=== PATIENT | male | born 1960 | race Two or more races ===

== ENCOUNTER 2018-03-11 11:06 | Inpatient (IN) | payer OTHER ==
[~2018-03-11] VITALS: Ht 170.2 cm; Wt 74.0 kg
--- NOTE | 2018-03-11 11:24 | NUR ---
PT BROUGHT TO ER FOR RECTAL BLEEDING, PER MEDIC PT WAS AT HOME WITH FAMILY AND REPORTS BRIGHT RED RECTAL BLOOD FOR 3 DAYS, PT DENIES PAIN, PT HAS WOUND VAC TO RIGHT AMPUTATED FOOT X2 MONTHS, PER PT HE IS SUPPOSED TO HAVE THE VAC CHANGED OUT TODAY. PT IS ALERT AND ORIENTED. PT REPORTS TAKING ADVIL TODAY AND HAS MILD SOB WHEN TALKING AT THIS TIME. DR PANDEY AT BEDSIDE FOR MSE.
--- NOTE | 2018-03-11 11:28 | NUR ---
DAUGHTER AT BEDSIDE SPEAKING WITH MD. DAUGHTER REPORTS HE HAS HAD 2 EPISODES OF BRIGHT RED BLOOD DRIPPING DOWN HIS LEGS. SHE ALSO STATES VOMITED THIS AM AND HIS EJECTION FRACTION IS 20%. LAB AT BEDSIDE AND DAUGHTER REPORTS HE IS TAKING PRADAXA.
--- NOTE | 2018-03-11 11:48 | NUR ---
PT IN POC, ALERT AND ORIENTED, ABLE TO GIVE SOCIAL NUMBER TO ADMITTING
--- NOTE | 2018-03-11 11:49 | NUR ---
PT DAUGHTER REPORTING HE IS A [employer] AND HAS NEVER BEEN TO [facility] BEFORE.
--- NOTE | 2018-03-11 11:55 | NUR ---
OK TO HOLD LEVOPHED AT THIS TIME UNTIL SYSTOLIC B/P IS LOWER THAN [address] PANDEY.
--- NOTE | 2018-03-11 11:56 | NUR ---
PORTABEL XRAY COMPLETED AT THIS TIME. PT ON FULL CM, SIDE RAILS UP FOR SAFETY, CALL LIGHT IN REACH AND I WILL CONTINUE TO MONITOR PT.
[2018-03-11 12:09] LABS: BILIRUBIN TOTAL 3.9 mg/dL (0.20-1.00); CALCIUM 7.5 mg/dL (8.5-10.1); CARBON DIOXIDE 20.4 mmol/L (21-32); PLATELET COUNT 121 x10^3mcL (130-400); POTASSIUM SERUM 3.1 mmol/L (3.5-5.1); RED CELL DISTRIBUTION WIDTH 18.1 % (11.5-14.5)
[2018-03-11 12:10] LABS: ALBUMIN 1.6 g/dL (3.4-5.0); TOTAL PROTEIN, SERUM 5.3 g/dL (6.4-8.2)
--- NOTE | 2018-03-11 12:14 | NUR ---
PT RESTING IN LOW FOWLERS, POC, SIDE RAILS UP, CALL LIGHT IN REACH AND PT ANSWERING QUESTIONS IN COMPLETE SENTENCES. PT HOLDING RIGHT FOREARM OVER FOREHEAD, REPORTS "IM JUST TIRED" PT AROUSBALE TO VERBAL STIMULI AND I WILL CONTINUE TO MONITOR PT.
--- NOTE | 2018-03-11 12:35 | NUR ---
PER AT BEDSIDE, PT TAKING PLAVIX DAILY FOR A LONG TIME AND WAS TOLD PRIOR TO FOOT SX TO START PRADAXA, THEN STOP 5 DAYS BEFORE SX. THE SURGERY WAS Feb AND PER PT THE DR CALLED AND TOLD HIM TO CONTINUE TAKING THE PRADAXA DAILY. PT REPORT HE DID NOT TAKE IT THIS AM.
[2018-03-11 12:48] LABS: BAND NEUTROPHIL 28 % (0-10); BASOPHIL 0 % (0-2); MONOCYTE 7 % (0-7); SEGMENTED NEUTROPHILS 62 % (37-75)
[2018-03-11 12:49] LABS: PLATELET MORPHOLOGY PLATELETS DECREASED; acanthocyte (spur cell) 3+; rbc morphology (normal/abnorm) ABNORMAL (NORMAL)
--- NOTE | 2018-03-11 12:59 | NUR ---
PT AT BEDSIDE PT LYING LEFT LATERAL AND ROLLING TO BACK WITHOUT ASSISTANCE FOR COMFORT. PT IS ALERT AND AROUSBALE TO VERBAL STIMULI. PT ON FULL CM, SIDE RAILS UP FOR SAFETY AND PRAXBIND INFUSING AND I WILL CONTINUE TO MONITOR PT.
--- NOTE | 2018-03-11 14:18 | NUR ---
PT LYING LEFT LATERAL; POC, AT BEDSIDE AND PT ON MONITOR. PT C/O OF PAIN TO RIGHT FOOT 10/22 AND NOW REQUESTING "PAIN PILLS" I ASKED PT WHAT HIS PRESCRIPITON FOR HIS FOOT PAIN IS AND HE RESPONDED "NORCO BUT I DONT TAKE IT, I ONLY TAKE TYLENOL" MD AWARE. STUDENT RESIDENT AT BEDSIDE.
[2018-03-11 14:51] LABS: MAGNESIUM 1.9 mg/dL (1.8-2.4); PHOSPHOROUS 2.9 mg/dL (2.5-4.9)
--- NOTE | 2018-03-11 14:55 | NUR ---
RECEIVED REPORT FROM SUSY FROM ED. PT ARRIVED ALERT & ORIENTED W/ SPEECH APPROPRIATE. EENT FREE OF DISCHARGE. PT BREATH E/U ON 2L NC. NSR W/ S1S2 TO DISTANT HEART SOUNDS. PT DENIES CHEST PAIN. PULSES MODERATE X4 BUE/BLE. CAP REFILL < 3 SEC. NO EDEMA. SKIN IS COOL. TEMP 95.9 WARMING MEASURES IMPLEMENTED. PERIPHERAL IV TO LEFT & RIGHT WRIST. PT NPO. ABD SOFT & FLAT. ACTIVE BS X4Q. PT SEMI-FORMED BROWN STOOL. NOTED DARK RED BLOOD SPOTTING ON DIAPER. NO ABD PAIN ON PALPATION. URINE INCONTINENT. PT HAS RIGHT FOOT SURGICAL WOUND W/ DRESSING TO WOUNDVAC, SECURE & INTACT. RIGHT BUTT CHEEK ABRASION W/ ZGUARD & OPTIFOAM PLACED. SKIN PINK. @ BEDSIDE. BED IN LOWEST POSITION CALL LIGHT IN REACH, ORIENTED TO ICU BED 1.
[2018-03-11 14:59] LABS: FREE T4 1.07 ng/dL (0.76-1.46); FREE THYROXINE INDEX 1.8 ug/dL (1.4-4.5); T4(THYROXINE) 4.8 ug/dL (4.7-13.3)
[2018-03-11 15:17] LABS: T3 TOTAL 0.22 ng/mL
[2018-03-11 15:38] VITALS: BP 92/67
--- NOTE | 2018-03-11 16:16 | NUR ---
COLLEGE TEACHER @ BEDSIDE. DR MINAYA VIEWED RESULTS W/ COLLEGE TEACHER.
--- NOTE | 2018-03-11 19:00 | NUR ---
DR. SALCEDO AT BEDSIDE FOR UPDATES. ALL QUESTIONS AND CONCERNS ANSWERED. ORDERED VIT K INJ WELL STATING THAT THE EGD AND COLONOSCOPY IS PLANNED FOR 0900 03/12/18.
[2018-03-11 19:30] VITALS: BP 100/69
--- NOTE | 2018-03-11 19:30 | NUR ---
GAVE REPORT TO MARIA ALEJANDRA KIMBALL. ALL QUESTIONS AND CONCERNS ANSWERED.
--- NOTE | 2018-03-11 19:30 | NUR ---
REC'D REPORT FROM GERI BESS FOR CONTINUITY OF CARE. PT SEEN LYING IN BED WITH EYES CLOSED, VERBALLY RESPONSIVE. PT IS A/O X4, SPEECH CLEAR AND APPROPRIATE. PT WITH C/O 8/[address] MCRAE MADE AWARE STATES WILL ORDER TORADOL. NO SOB NOTED, RESPS E/U ON O2 2LPM VIA NC O2 SAT 95%. ABD DISTENDED AND SOFT. BOWEL SOUNDS HYPOACTIVE. PT CONTINUED ON BOWEL PREP FOR PROCEDURE IN AM WITH DR SALCEDO. PT INCONTINENT X2. GAIL BUTTOCK AREA NOTED WITH OPEN WOUNDS. Z GUARD APPLIED. RIGHT FOOT AMPUTATION WITH DSG CDI, WOUND VAC IN PLACE DRAINING VIA GRAVITY. SCDS IN PLACE. PT TEACHING PROVIDED REGARDING PLAN OF CARE REGARDING BOWEL PREP AND WILL BE NPO AFTER [address] PHILLIPS, VERBALIZED UNDERSTANDING. INSTRUCED TO CALL FOR ANY ASSISTANCE WITH CALL LIGHT. CALL LIGHT WITHIN REACH. WILL CONTINUE WITH PLAN OF CARE.
--- NOTE | 2018-03-11 19:40 | NUR ---
PT HAD LARGE SOFT BM, CLEANED, GOOD RAMAN CARE PROVIDED. Z-GUARD APPLIED TO GAIL BUTTOCK OPEN WOUNDS.
--- NOTE | 2018-03-11 19:45 | NUR ---
INFORMED CONSENT FOR EGD AND COLONOSCOPY SIGNED BY PT WITH AT BEDSIDE. PT VERBALIZES UNDERSTANDING ALL RISKS/BENEFITS AND WAS DISCUSSED WITH DR SALCEDO REGARDING EGD AND COLONOSCOPY PROCEDURES IN AM.
--- NOTE | 2018-03-11 20:00 | NUR ---
DR MCRAE PAGED REGARDING PAIN MEDICATION, AWAITING CALL BACK.
--- NOTE | 2018-03-11 20:10 | NUR ---
JAZMIN RT AT BEDSIDE, PT REFUSED BREATHING TX AT THIS TIME. PT STATES I DON'T FEEL SOB.
--- NOTE | 2018-03-11 20:25 | NUR ---
DR MCRAE CALLED, REMINDED REGARDING PTS PAIN LEVEL 8/10 NEEDING PAIN MEDICATION. STATES WILL ORDER.
--- NOTE | 2018-03-11 20:38 | NUR ---
PT HAD LARGE SOFT BM, CLEANED, GOOD RAMAN CARE PROVIDED. Z-GUARD APPLIED TO GAIL BUTTOCK OPEN WOUNDS.
--- NOTE | 2018-03-11 20:40 | NUR ---
PTS BLADDER SCAN DONE, 578ML RESIDUAL NOTED. EXPLAINED TO PT RISKS/BENEFITS OF F/C. PT STATES WANTING PAIN MEDICATION PRIOR TO CATHETER INSERTION. DR MCRAE MADE AWARE.
--- NOTE | 2018-03-11 21:15 | NUR ---
PT REPOSITIONED TO RIGHT SIDE, PT BECAME SOB STATING I CAN'T BREATH. O2 SAT 89%. PT PLACED IN HIGH FOWLERS POSITION, O2 TITRATED TO 4LPM. RT JAZMIN CALLED AT THIS TIME.
--- NOTE | 2018-03-11 21:27 | NUR ---
RT JAZMIN AT BEDSIDE GIVING BREATHING TX. RT JAZMIN SUGGESTING FLUID IN LUNGS MIGHT HAVE SHIFTED WHEN REPOSITIONED AND PT BECAME SOB. PTS STATES PT USUALLY TAKES LASIX AT HOME. DR MCRAE CALLED AGAIN MADE AWARE REGARDING PTS C/O SEVERE PAIN, BLADDER SCAN RESULT OF 578, AND EPISODE OF SOB WITH SUGGESTION TO ADD LASIX MEDICATION. DR MCRAE STATES TO INSERT F/C AND WILL ORDER MEDICATIONS.
--- NOTE | 2018-03-11 22:06 | NUR ---
F/C 16FR INSERTED AT EASE. PT TOLERATED WELL. 400ML DARK FRANCI COLORED URINE NOTED.
[2018-03-11 23:02] LABS: microscopic required? YES; urine erythrocyte TRACE (NEGATIVE)
[2018-03-11 23:11] LABS: AMPHETAMINE QUAL UR NONE DETECTED (See below)
[2018-03-12] VITALS (7 sets, daily range): BP systolic 90–122; BP diastolic 36–76; Ht 170.2 cm; Wt 74.0 kg
--- NOTE | 2018-03-12 00:19 | NUR ---
PT HAD LARGE PASTEY BM. CLEANED AND GOOD RAMAN CARE PROVIDED. Z-GUARD APPLIED. SMALL AMT OF BLOOD NOTED TO OPEN AREA ON BUTTOCK.
--- NOTE | 2018-03-12 04:15 | NUR ---
PT HAD LARGE AMT OF LOOSE WATERY BM. CLEANED AND ALL LINENS CHANGED. Z-GUARD APPLIED. NO BLOOD NOTED IN STOOL.
[2018-03-12 05:17] LABS: PLATELET COUNT 123 x10^3mcL (130-400); RED CELL DISTRIBUTION WIDTH 17.5 % (11.5-14.5)
[2018-03-12 05:23] LABS: CALCIUM 7.7 mg/dL (8.5-10.1); CARBON DIOXIDE 20.6 mmol/L (21-32); CREATININE SERUM 2.2 mg/dL (0.7-1.3)
[2018-03-12 05:38] LABS: BAND NEUTROPHIL 4 % (0-10); METAMYELOCTE 5 % (0-2); MONOCYTE 5 % (0-7); SEGMENTED NEUTROPHILS 84 % (37-75)
--- NOTE | 2018-03-12 05:45 | NUR ---
PT HAD LARGE, WATERY CLEAR BM. PT CLEANED, ALL LINENS CHANGED. Z-GUARD APPLIED.
[2018-03-12 05:46] LABS: burr cell (echinocyte) 1+; rbc morphology (normal/abnorm) ABNORMAL (NORMAL)
[2018-03-12 05:47] LABS: acanthocyte (spur cell) 1+
--- NOTE | 2018-03-12 06:22 | NUR ---
PT HAD LARGE, WATERY CLEAR BM. PT CLEANED, ALL LINENS CHANGED. Z-GUARD APPLIED.
--- NOTE | 2018-03-12 08:55 | NUR ---
GI TEAM AT BEDSIDE SETTING UP FOR COLONOSCOPY AND EGD.
--- NOTE | 2018-03-12 09:58 | NUR ---
EGD AND COLONOSCOPY COMPLETED BY DR CARRILLO. NO ACTIVE BLEEDING FOUND. OK TO TRANSFER TO [facility] PER DR CARRILLO.
--- NOTE | 2018-03-12 10:35 | NUR ---
DR. CARSON, RESIDENTS, GROUP SOCIAL WORKER AND PRIMARY RN AT BEDSIDE FOR MORNING ROUNDS. PLAN OF CARE DISCUSSED. PT REMAINS STABLE. WILL CONT TO MONITOR.
--- NOTE | 2018-03-12 13:31 | NUR ---
R FOOT DRESSING CHANGED. WET TO DRY.
--- NOTE | 2018-03-12 14:17 | NUR ---
GAVE REPORT TO LEONIN FOR PT TO ROOM 240A. ALL CARE ENDORSED.
--- NOTE | 2018-03-12 15:40 | NUR ---
RECEIVED FROM ICU VIA BED ASLEEP, AROUSABLE, APPEARS VERY SLEEPY AND WENT BACK TO SLEEP RIGHT AWAY. S/P EGD AND COLONOSCOPE THIS MORNING PER ICU REPORT. BREATHING E/U ON O2 2LPM N/C. AFEBRILE, V/S STABLE. IVF NS INFUSING AT 100ML/HR IV SITE INTACT AND PATENT. TELE# NSR WITH PAC'S AND PVC, HR=66. NO FRACE GRIMACING OR SIGNS OF PAIN. ON FULL LIQUID DIET, PER SPOUSE STATED PATIENT HAD A LITTLE BIT OF SOUP, DENIES NAUSEA. LOMBARDO CATHETER DRAINING TO GRAVITY DARK FRANCI URINE COLORED OUTPUT. TRACE EDEMA TO BLE. INCISION WOUND TO RIHGT FOOT WITH DRSG COVERRED, DRY AND INTACT. SCD TO LLE INPLACED ONGOING. EXCORIATION TO LEFT BUTTOCK NOTED, Z GUARD APPLIED AND REPOSTIONED TO RIGHT SIDE. ORIENTATION PATIENT'S SPOUSE TO ROOM ENVIRONMENT. CALL LIGHT PLACED WITHIN EASY REACH, SIDERAILS UP X2.
--- NOTE | 2018-03-12 17:09 | NUR ---
STILL ASLEEP, NO ANY DISTRESS NOTED, FSBS =127.
--- NOTE | 2018-03-12 18:43 | NUR ---
FED BY DRYING EQUIPMENT OPERATOR, NO ASPIRATION PER DRYING EQUIPMENT OPERATOR SERA'S REPORT. IVPB ZOSYN INFUSING WELL TO RT WRIST IV SITE.
--- NOTE | 2018-03-12 19:20 | NUR ---
RECEIVED PT FROM PREVIOUS SHIFT NURSE. PT AOX4, LETHARGIC, EASILY AROUSED. DENIES BAGLEY/DIZZINESS. TELE #32, NSR WITH PVCS. DENIES CP/PRESSURE. PULSES PALPABLE, TRACE BLE EDEMA NOTED. LUNG SOUNDS CLEAR, ON 2L NC. DENIES SOB/DIFFICULTY BREATHING. BOWEL SOUNDS ACTIVE. LOMBARDO CATH IN PLACE, DARK FRANCI OUTPUT NOTED. GEN WEAKNESS. R. FOOT DSG S/P TRANSMETATARSAL AMP. EXCORIATION TO L. BUTTOCK. IV TO R. WRIST, INTACT AND PATENT. BED IN LOWEST POSITION. CALL LIGHT WITHIN REACH. WILL CONTINUE TO MONITOR.
--- NOTE | 2018-03-12 20:48 | NUR ---
PER PT REQUEST, PT PROVIDED WITH APPLE SAUCE AND CHICKEN BROTH.
--- NOTE | 2018-03-12 21:30 | NUR ---
PT TOLERATING FULL LIQUID DIET WELL.
--- NOTE | 2018-03-13 03:30 | NUR ---
PT RESTING IN BED. RR EVEN AND UNLABORED. NO ACUTE DISTRESS NOTED. CALL LIGHT WITHIN REACH. BED IN LOWEST POSITION. WILL CONTINUE TO MONITOR.
[2018-03-13 05:08] VITALS: BP 118/58
--- NOTE | 2018-03-13 07:05 | NUR ---
RECEIVED A BEDSIDE REPORT. RESTING WITH EYES CLOSED. NO RESP DISTRESS NOTED ON O2 2LPM N/C. TELE# NSR WITH PVC'S HR=66. NO S/S OF PAIN AT THIS TIME. ABD SOFT AND FLAT. ON FULL LIQUID DIET. GEN BODY WEAKNESS. RIGHT FOOT AMPUTATION WOUND COVERED WITH DRSG WITH SMALL AMOUNT OF YELLOWISH DRAIN NOTED, KEPT ELEVATED ON PILLOW. LLE TRACE EDEAM, MODERATE PEDAL PULSES PALPABLE. SCD TO LLE INPLACED. CALL LIGHT PLACED WITHIN EASY REACH. SIDERAILS UP X2.
--- NOTE | 2018-03-13 07:30 | NUR ---
PATIENT'S SPOUSE REQUESTED TO HAVE RIGHT FOOT AMPUTATION WOUND DRSG CHANGED. OLD DRSG REMOVED, WOUND PHOTO TAKEN, WET TO DRY DRESSING CHANGE PERFORMED, WRAPPED WITH KERLIX GAUZES, ELEVATED ON PILLOW. NO FACE GRIMACING OR SIGNS OF PAIN NOTED. PATIENT RESTING WITH EYES CLOSED, BREATHING E/U ON O2 2LPM N/C. IV NS TO RT WRIST INFUSING WELL AT 100ML/HR. SCD TO LLE INPLACED.
--- NOTE | 2018-03-13 07:50 | NUR ---
ON FULL LIQUID DIET, PATIENT'S SPOUSE STATED THAT PATIENT COULDN'T EAT THE FOOD THAT BROUGHT UP BY THE KITCHEN STATED TOO MUCH SUGAR. I CALLED THE K9 HANDLER AND HAD THE PATIENT'S SPOUSE SPOKE TO HER, PATIENT'S SPOUSE VERBALIZED UNDERSTANDING.
[2018-03-13 08:59] VITALS: BP 130/62
--- NOTE | 2018-03-13 09:20 | NUR ---
SEEN BY JOVANA PINEDA. NOTED NEW ORDER FOR CBC NOW.
[2018-03-13 10:14] LABS: PLATELET COUNT 118 x10^3mcL (130-400); RED CELL DISTRIBUTION WIDTH 17.5 % (11.5-14.5)
--- NOTE | 2018-03-13 11:40 | NUR ---
SEEN BY DOCTOR GERARDO. PATIENT WILL BE DISCHARGED HOME, PATIENT MADE AWARE.
[2018-03-13] MEDS ORDERED: GABAPENTIN100 M2 PO (12:05)
[2018-03-13] MEDS ORDERED: PROTONIX20 MG PO (12:05)
[2018-03-13] MEDS ORDERED: ATORVASTATIN CA40 M1 PO (12:06)
--- NOTE | 2018-03-13 12:50 | NUR ---
LOMBARDO CATHETER REMOVED WITH 250ML DARK FRANCI URINE COLORED OUTPUT NOTED.
[2018-03-13 12:51] VITALS: BP 112/60
--- NOTE | 2018-03-13 13:02 | NUR ---
HAVING CCHO FOR LUNCH ASSISTED BY HIS SPOUSE, TOLERATING WELL.
--- NOTE | 2018-03-13 13:06 | NUR ---
Initial Nutrition Assessment: Constantin Pérez 240T-A Dx: GI bleed PMHx: DM, HTN, TN, CHF PSHx: right transmetatarsal amputation from DM complications, wound vac is in place. Labs: (03/13) WBC:13.9H, H/H:9.9/30L (03/12) BH, BUN:71H, Cr:2.2H, Ca:7.7L, (03/11) T bili:3.9H, THm A1c:8H, BNP:1954H Meds:Coalce, Humulin, Lactinex, Lipitor, Neurontin, NS IV, Zofran, Zosyn Diet: Full liquid PO Intake: (03/13) B: refused. Pt's broguht soup from home Ht:67in, 5'7" Wt:163#, 74kg BMI: 25.6kg/m2 (overweight) IBW:148#, 67kg %IBW: 110% UBW:does not know Age: 57 y/o male Food Allergies:NKFA Skin: right foot amputation with yellowish drainage. Excoration to left buttock Bertin: 13 Edema: trace to BLE GI: activew bowel souds Last BM:03/12 Nursing TriggerL N/V/D>3days Pt admitted to the ICU unit with active rectal bleeding. Pt states for the past 2 days, he has 3 bright red bloddy stools and 2 episodes of red emesis, per H&P. Per progress note 03/12, pt is s/p EGD with colonoscopy with Dr. Calle with no active bleeding found, No acute event overnight. Vitals and Hgb have been stable. Per RN note 03/13, pt's stated, pt could not eat the food provided, due to too much sugar. Pt's brought soup from home. Pt to possibly discharge home today. Problem with: N/V/D/C:No Problems with: Chewing:/Swallowing: No Current appetite: Fair Recent wt change:unable to assess %wt change:N/A Vitamin/Supplement use:No Special diet at home:Regular Physical activity:No Education: declined Estimated Nutritional Needs Based on actual body weight 74kg Energy:1850-2220kcal/d (25-30kcal/kg for maintenance) Protein:74g/d (1g/kg for maintenance) Fluid:7937-8888 ml/d (1 ml/kcal) or per doctor Nutrition Diagnosis 1. Inadequate protein/energy intake related current diet order providing insufficient kcals as evidenced by pt on full liquid diet. Intervention 1.Recommend advance diet as tolerated to CCHO, 2gm Na due to pt with diabetes and CHF. Monitor/Evaluate Goal: PO intake at least 75% of estimated needs and diet advancement Monitor: PO intake, Labs, GI function F/U in 2-3 days as high risk:1/2-2
[2018-03-13 13:07] VITALS: BP 130/62
--- NOTE | 2018-03-13 13:07 | NUR ---
Recommend advance diet as tolerated to CCHO, 2gm Na due to pt with diabetes and CHF.
--- NOTE | 2018-03-13 16:10 | NUR ---
DISCHARGE INSTRUCTION AND PRESCRIPTION EXPLAINED AND GIVEN TO PATIENT AND HIS SPOUSE, BOTH VERBALIZED UNDERSTANDING. S/L TO RIGHT WRIST REMOVED NO S/S OF INFECTION NOTED, DRSG APPLIED. DRSG TO RIGHT FOOT WOUND DRY AND INTACT. DENIES PAIN AT THIS TIME. TELE#32 REMOVED. BROUGHT VIA WHEELCHAIR BY CROP QUANTITATIVE GENETICIST TO LOBBY ACCOMPANIED BY HIS SPOUSE. NO ANY DISTRESS NOTED UPON DISCHARGE HOME.
[2018-03-13 16:27] LABS: BAND NEUTROPHIL 2 % (0-10); METAMYELOCTE 2 % (0-2); MONOCYTE 5 % (0-7); SEGMENTED NEUTROPHILS 89 % (37-75)
[2018-03-13 16:32] LABS: burr cell (echinocyte) 1+
[2018-03-13 16:33] LABS: acanthocyte (spur cell) 1+
[2018-03-13 16:34] LABS: rbc morphology (normal/abnorm) ABNORMAL (NORMAL)
[2018-03-13 16:39] LABS: PLATELET MORPHOLOGY PLATELETS DECREASED
== END 2018-03-13 16:12 | disposition home or self-care (01) | DRG 377 ==
LOC: ED 11:06 → IC 13:42 → DU 03-12 15:46
PROVIDERS: Emergency Medicine; Internal Medicine; ADMIT Internal Medicine
PROC: 0DJ08ZZ Inspection of Upper Intestinal Tract, Via Natural or Artificial Opening Endoscopic (ICD-10-PCS; principal; 2018-03-12 09:00)
PROC: 0DJD8ZZ Inspection of Lower Intestinal Tract, Via Natural or Artificial Opening Endoscopic (ICD-10-PCS; 2018-03-12 09:00)
DX: K92.2 Gastrointestinal hemorrhage, unspecified (principal); I50.33 Acute on chronic diastolic (congestive) heart failure; D62 Acute posthemorrhagic anemia; E87.1 Hypo-osmolality and hyponatremia; T45.515A Adverse effect of anticoagulants, initial encounter; I11.0 Hypertensive heart disease with heart failure; E11.43 Type 2 diabetes mellitus with diabetic autonomic (poly)neuropathy; K31.84 Gastroparesis; E87.6 Hypokalemia; E11.65 Type 2 diabetes mellitus with hyperglycemia; E03.9 Hypothyroidism, unspecified; E78.5 Hyperlipidemia, unspecified; I25.2 Old myocardial infarction; Z68.27 Body mass index [BMI] 27.0-27.9, adult; Z79.01 Long term (current) use of anticoagulants; Y92.009 Unspecified place in unspecified non-institutional (private) residence as the place of occurrence of the external cause
CPT/HCPCS: 43235; 45378; 82962; 83880; 84439; C9113; J0171; J0456; J0696; J1200; J1610; J1885; J1940; J2250; J2310; J2354; J2543; J3010; J3430; J3490; J7030; J7040; J7620; Q0092